=== PATIENT | female | born 1950 ===

== ENCOUNTER 2016-07-16 19:38 | Emergency (ER) | payer MEDICAID ==
[2016-07-16 19:46] VITALS: RESP 16; O2SAT 96
--- NOTE | 2016-07-16 20:56 | ED PDOC ---
HPI: Psych/Substance Abuse Time Seen by Provider: 07/16/16 20:13 Chief Complaint (Nursing): Psychiatric Evaluation Chief Complaint (Provider): edp History Per: EMS, Family Additional History Per: Patient, EMS, Family Additional Complaint(s): 65 y/o female brought in by EMS for psych eval. As per EMS, 911 was called because patient was being aggressive and throwing belongings out the window after finding out she is being evicted. Patient calm at present, states she does not know why she is here; states she was taking out some garbage when EMS arrived. Denies suicidal/homicidal ideations, hallucinations, acute physical complaints. Past Medical History Reviewed: Historical Data, Nursing Documentation, Vital Signs Vital Signs: Last Vital Signs Temp 98.5 F 07/16/16 19:41 Pulse 129 H 07/16/16 19:41 Resp 16 07/16/16 19:41 BP 150/84 07/16/16 19:41 Pulse Ox 96 07/16/16 19:41 - Medical History PMH: Anxiety, Asthma, Depression Denies: Atrial Fibrillation, Cardia Arrhythmia, Cardiac Aneurysm, Diabetes, Hepatitis, HIV, HTN, Seizures, Sexually Transmitted Disease - Family History Family History: States: Unknown Family Hx - Immunization History Hx Tetanus Toxoid Vaccination: No Hx Influenza Vaccination: No Hx Pneumococcal Vaccination: No - Allergies Allergies/Adverse Reactions: Allergies Allergy/AdvReac Type Severity Reaction Status Date / Time Penicillins Allergy RASH Verified 07/16/16 23:31 Review of Systems ROS Statement: Except As Marked, All Systems Reviewed And Found Negative Physical Exam - Reviewed Nursing Documentation Reviewed: Yes Vital Signs Reviewed: Yes - Physical Exam Appears: Positive for: Well, Non-toxic, No Acute Distress Head Exam: Positive for: ATRAUMATIC, NORMAL INSPECTION, NORMOCEPHALIC Skin: Positive for: Normal Color Eye Exam: Positive for: Normal appearance ENT: Positive for: Normal ENT Inspection Cardiovascular/Chest: Positive for: Regular Rate, Rhythm Respiratory: Positive for: Normal Breath Sounds Gastrointestinal/Abdominal: Positive for: Normal Exam Back: Positive for: Normal Inspection Extremity: Positive for: Normal ROM Neurologic/Psych: Positive for: Alert, Oriented - ECG O2 Sat by Pulse Oximetry: 96 - Progress ED Course And Treament: Patient evaluated by community organization worker; does not meet criteria for admission at this time as per Dr. Brady. Stable for discharge. Return to ED for worsening/concerning symptoms. Disposition - Clinical Impression Clinical Impression: Bipolar 1 disorder - Patient ED Disposition Is Patient to be Admitted: No Counseled Patient/Family Regarding: Diagnosis, Need For Followup - Disposition Disposition: Routine/Home Disposition Time: 23:37 Condition: STABLE Instructions: Bipolar Disorder (ED)
[2016-07-16 23:59] VITALS: BP 147/84; PULSE 92; TEMP 98.1
== END 2016-07-17 00:20 | disposition home or self-care (01) ==
LOC: H.ER 19:38
DX: F31.9 Bipolar disorder, unspecified (principal)

== ENCOUNTER 2017-05-30 07:07 | Emergency (ER) | payer MEDICARE, MEDICAID ==
[2017-05-30] MEDS ORDERED: Albuterol 0.083% Inhal Sol (2.5 mg/3 mL) UD INH STA ×2 (07:56→07:57)
--- NOTE | 2017-05-30 08:14 | ED PDOC ---
HPI: CCC, URI, Sore Throat Time Seen by Provider: 05/30/17 07:27 Chief Complaint (Nursing): Cough, Cold, Congestion Chief Complaint (Provider): Cough History Per: Patient History/Exam Limitations: no limitations Onset/Duration Of Symptoms: Days (x 5) Current Symptoms Are (Timing): Still Present Additional Complaint(s): Linda is a 66 y/o female with a history of asthma who presents to the ED c/o cough and sore throat for the past 5 days. Patient denies fever, phlegm, nausea , vomiting, chills, shortness of breath, or back pain. She has not had a flu shot. PMD: None Provided Past Medical History Reviewed: Historical Data, Nursing Documentation, Vital Signs Vital Signs: Last Vital Signs Temp 97.8 F 05/30/17 07:27 Pulse 110 H 05/30/17 09:14 Resp 18 05/30/17 09:14 BP 113/75 05/30/17 09:14 Pulse Ox 93 L 05/30/17 09:14 - Medical History PMH: Anxiety, Asthma, Depression Denies: Atrial Fibrillation, Cardia Arrhythmia, Cardiac Aneurysm, Diabetes, Hepatitis, HIV, HTN, Seizures, Sexually Transmitted Disease - Family History Family History: States: Unknown Family Hx - Immunization History Hx Tetanus Toxoid Vaccination: No Hx Influenza Vaccination: No Hx Pneumococcal Vaccination: No - Home Medications Home Medications: Ambulatory Orders Medication Instructions Recorded Albuterol HFA [Ventolin HFA 90 2 puff IH [id number] #1 packet 05/30/17 mcg/actuation (8 g)] Promethazine DM [Phenergan DM 5 ml PO Q6H PRN #120 ml 05/30/17 Syrup] - Allergies Allergies/Adverse Reactions: Allergies Allergy/AdvReac Type Severity Reaction Status Date / Time Penicillins Allergy RASH Verified 07/16/16 23:31 Review of Systems ROS Statement: Except As Marked, All Systems Reviewed And Found Negative Constitutional: Negative for: Fever, Chills ENT: Positive for: Throat Pain Respiratory: Positive for: Cough. Negative for: Shortness of Breath, Sputum Gastrointestinal: Negative for: Nausea, Vomiting Musculoskeletal: Negative for: Back Pain Physical Exam - Reviewed Nursing Documentation Reviewed: Yes Vital Signs Reviewed: Yes - Physical Exam Appears: Positive for: Well, Non-toxic, No Acute Distress Head Exam: Positive for: ATRAUMATIC, NORMAL INSPECTION, NORMOCEPHALIC Skin: Positive for: Normal Color, Warm, Dry Cardiovascular/Chest: Positive for: Regular Rate, Rhythm. Negative for: Murmur Respiratory: Positive for: Wheezing (b/l) Gastrointestinal/Abdominal: Positive for: Normal Exam, Bowel Sounds, Soft. Negative for: Tenderness Neurologic/Psych: Positive for: Alert, Oriented - Radiology X-Ray: Read By Radiologist Medical Decision Making Medical Decision Making: Time: 7:55 Initial Impression: Upper Respiratory Tract Infection, Asthma Exacerbation Initial Plan: --Chest XR --Albuterol Treatment x 2 Scribe Attestation: Documented by Linden Lu, acting as a scribe for Odessa Hawkins MD Provider Scribe Attestation: All medical record entries made by the Scribe were at my direction and personally dictated by me. I have reviewed the chart and agree that the record accurately reflects my personal performance of the history, physical exam, medical decision making, and the department course for this patient. I have also personally directed, reviewed, and agree with the discharge instructions and disposition. Disposition - Clinical Impression Clinical Impression: Bronchospasm - Patient ED Disposition Is Patient to be Admitted: No Doctor Will See Patient In The: Office Counseled Patient/Family Regarding: Diagnosis, Need For Followup, Rx Given - Disposition Referrals: [facility] [Outside] [facility] [Outside] [facility] [Outside] Disposition: Routine/Home Disposition Time: 09:30 Condition: STABLE Prescriptions: Albuterol HFA [Ventolin HFA 90 mcg/actuation (8 g)] 2 puff IH [id number] #1 packet Promethazine DM [Phenergan DM Syrup] 5 ml PO Q6H PRN #120 ml PRN Reason: Cough Instructions: Bronchospasm (ED), Asthma (ED) Forms: [facility] (Lithuanian) Print Language: SWEDISH - POA Present On Arrival: None
[2017-05-30] MEDS ORDERED: Albuterol 0.083% Inhal Sol (2.5 mg/3 mL) UD ONE (08:23)
[2017-05-30 09:13] VITALS: RESP 18
[2017-05-30 09:15] VITALS: PULSE 110
--- NOTE | 2017-05-30 09:54 | RAD ---
HISTORY: cough x 5days with phlegm COMPARISON: Chest radiograph dated 05/28/2012. TECHNIQUE: Chest PA and lateral FINDINGS: LUNGS: No active pulmonary disease. PLEURA: No significant pleural effusion identified. No pneumothorax apparent. CARDIOVASCULAR: Atherosclerotic aortic calcifications. Cardiomediastinal silhouette within normal limits. OSSEOUS STRUCTURES: Unchanged. VISUALIZED UPPER ABDOMEN: Normal. OTHER FINDINGS: None. IMPRESSION: No active disease.
[2017-05-30 11:03] VITALS: BP 127/94; TEMP 97.9; O2SAT 94
== END 2017-05-30 10:50 | disposition home or self-care (01) ==
LOC: H.ER 07:07
DX: J98.01 Acute bronchospasm (principal)